=== PATIENT | male | born 1960 | race Caucasian/White ===

== ENCOUNTER 2018-09-15 19:21 | Emergency (ER) | payer SELFPAY ==
[~2018-09-15] VITALS: Ht 177.8 cm; Wt 83.0 kg
[2018-09-15 19:36] VITALS: Ht 177.8 cm; Wt 83.0 kg
--- NOTE | 2018-09-16 00:59 | ERD ---
ER Documentation Chief Complaint Chief Complaint RIGHT WRIST INJURY A WEEK AGO, PAIN, LIMITED ROM HPI This is a 58 yo right-handed M with hx of a prior right wrist injury requiring orthopedic surgery who presents to the ED with complaints of intermittent right wrist pain x 1 week. Pt states he was at work and carrying loads of branches when he accidentally slipped and "tweaked" his right wrist. He denies any direct fall onto his hand or wrist. There was no LOC or head injury. He states that he has been having intermittent right wrist pain that is worse with movement since then. Has been wearing a splint at home for comfort. He otherwise has full range of motion of fingers and elbow. Denies any other injuries. No lacerations or abrasions. ROS All systems reviewed and are negative except as per history of present illness. Allergies Allergies: Coded Allergies: No Known Allergy (Unverified , 09/15/18) PMhx/Soc Medical and Surgical Hx: pt denies Medical Hx History of Surgery: Yes (R Arm Ortho Surg) Anesthesia Reaction: No Hx Neurological Disorder: No Hx Respiratory Disorders: No Hx Cardiac Disorders: No Hx Psychiatric Problems: No Hx Miscellaneous Medical Probl: No Hx Alcohol Use: Yes (Social) Hx Substance Use: No Hx Tobacco Use: Yes (10 sticks/day) Smoking Status: Current every day smoker Physical Exam Vitals Vital Signs Date Temp Pulse Resp B/P (MAP) Pulse Ox O2 O2 Flow FiO2 Time Delivery Rate 09/16/18 98.2 98 20 189/114 98 Room Air 01:51 (139) 09/15/18 97.2 89 16 115/62 97 19:36 (79) Physical Exam Const: No acute distress Head: Atraumatic Neck: Full range of motion. No meningismus. Skin: No petechiae or rashes Back: No midline or flank tenderness Upper Extremity - right Skin: No laceration, or evidence of external trauma Compartments: Soft Motor: + Pain with ROM of wrist. Sensation: Radial, ulnar and median nerves intact. Bones: Nontender humerus/elbow/forearm/wrist/hand Snuffbox: Nontender Joints: No effusion Pulses/Perfusion: 2+ radial, Capillary refill < 2 seconds Neur: Awake and alert Psych: Normal Mood and Affect Procedures/MDM EMERGENT LABS AND DIAGNOSTIC STUDIES: Radiology Results as interpreted by Radiology: PROCEDURE: XR Wrist. CLINICAL INDICATION: Right wrist pain. TECHNIQUE: AP, lateral and oblique views of the right wrist were performed. Images were reviewed on a PACS workstation. COMPARISON: No prior studies are available for comparison. FINDINGS: The ulna is normal in appearance. There is an intramedullary rachelle in the distal aspect of the radius. The radiocarpal joint is maintained. There is a deformity in the distal aspect of the fifth metacarpal, which appears to be a healed prior boxer's fracture. There is is no evidence of acute fracture. The carpal bones and intercarpal joints are normal in appearance. The alignment of the carpal bones is within normal limits. The marrow density is normal. There is no significant soft tissue swelling. IMPRESSION: 1. Deformity in the distal aspect of the fifth metacarpal with suggestion of healed boxers fracture. Dedicated views of the hand may be helpful for further evaluation. 2. Otherwise, normal radiographs of the right wrist. No evidence of acute fracture. Nursing Notes Reviewed. Previous Medical Records requested via the Electronic Health Record. EMERGENCY DEPARTMENT COURSE / MEDICAL DECISION MAKING: This is a 58 yo M with hx of prior right wrist injury requiring surgery who presents with nontraumatic right wrist pain while carrying heaving branches. Physical exam is unremarkable. XR shows a healing boxer's fracture but otherwise negative for any acute fracture, dislocation or subluxation of the wrist. I dis cussed these results with pt. Signs and symptoms most consistent with a wrist sprain although I cannot rule out occult fracture. Pt was offered pain medications and splint but he deferred. He has no evidence of compartment syndrome, neurologic injury, vascular injury, open joint, open fracture, tendon laceration, or foreign body. Prior to discharge, pt was noted to have an elevated blood pressure of 189/114. He denies any history of HTN and does not take any blood pressure medications. He denies any chest pain, changes in vision, headache, hematuria or any other symptoms. I suspect his elevated blood pressure is related to his wrist pain. I have low suspicion for ACS, CA or NSTEMI. Pt is stable for outpatient follow up and management. Given his age and hx of tobacco use, I strongly recommended pt follow up closely with a PCP regarding his blood pressure. A list of clinics were provided. He was told to return to the ED for any new or worsening symptoms. PRESCRIPTIONS: None, pt deferred. 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 Smoking Cessation Therapy: Pt. was lectured for greater than 3 minutes on the health risks of continued smoking and the benefits of cessation Departure Diagnosis: Primary Impression: Right wrist sprain Encounter type: initial encounter Qualified Codes: S63.501A - Unspecified sprain of right wrist, initial encounter Additional Impression: Elevated blood pressure reading Condition: Stable Patient Instructions: Wrist Sprain Referrals: [facility] Additional Instructions: Follow up with your PCP in 2 days. Return to the ED for any new or worsening symptoms. MONICO JUAREZ PA-C Sep 16, 2018 00:59
[2018-09-16 01:51] VITALS: BP 189/114; PULSE 98; RESP 20
== END 2018-09-16 02:02 | disposition home or self-care (01) ==
LOC: FTE 19:21
DX: S63.501A Unspecified sprain of right wrist, initial encounter (principal); R03.0 Elevated blood-pressure reading, without diagnosis of hypertension; F17.210 Nicotine dependence, cigarettes, uncomplicated; W01.0XXA Fall on same level from slipping, tripping and stumbling without subsequent striking against object, initial encounter; Y92.89 Other specified places as the place of occurrence of the external cause